=== PATIENT | male | born 1955 | race Caucasian/White ===

== ENCOUNTER 2020-12-25 10:02 | Outpatient (CLI) | payer OTHER ==
--- NOTE | 2020-12-25 10:42 | ULT ---
ABDOMINAL AORTIC ULTRASOUND: Date: 12/25/2020 HISTORY: Abdominal aortic aneurysm screening. FINDINGS: Real-time imaging of the abdominal aorta shows a proximal AP dimension of 1.7 cm, mid portion 1.5 cm, and distally 1.3 cm. Iliac dimensions are 1.1 cm bilaterally. IMPRESSION: No evidence of aortic aneurysm. POS: [facility]
== END 2020-12-25 10:03 | disposition home or self-care (01) ==
LOC: BICULT 10:02
PROVIDERS: ATTEND Internal Medicine
DX: Z13.6 Encounter for screening for cardiovascular disorders (principal)
CPT/HCPCS: 76775

== ENCOUNTER 2025-08-24 13:30 | Emergency (ER) | payer OTHER ==
[2025-08-24] MEDS ORDERED: HYDROcodone/Acetaminophen 10/325 mg Tablet ONE (14:26)
== END 2025-08-24 14:47 | disposition home or self-care (01) ==
LOC: ERS 13:30
DX: S46.912A Strain of unspecified muscle, fascia and tendon at shoulder and upper arm level, left arm, initial encounter (principal); I10 Essential (primary) hypertension; W18.30XA Fall on same level, unspecified, initial encounter
CPT/HCPCS: 99283